=== PATIENT | female | born 1980 | race African-American/Black ===

== ENCOUNTER 2017-04-28 18:11 | Emergency (ER) | payer OTHER ==
[~2017-04-28] VITALS: Ht 165.1 cm; Wt 92.1 kg
--- NOTE | ~2017-04-28 | CR63 ---
[facility] RADIOLOGY TEXT RESULTS PATIENT: MICHELLE ALVAREZ LOCATION: [facility] : 76 UNIT #: [id number] AGE: [address]: Jason Champagne DO SEX: F ORDER DR: [id number] [facility] [address] [place], [place] [address] [id number] E MR#: [id number] Acc #: [id number] NAME: MICHELLE ALVAREZ : 1980 SEX: F STUDY DATE/TIME: 04/28/2017 19:28 UNIT: [facility] ROOM: STUDY DESCRIPTION: CR Chest 2 View Attending Physician: Jason Champagne D.O. Ordering Physician: Jason Champagne D.O. Primary Care Physician: No Primary Care Physician MEDICAL IMAGING REPORT This report is preliminary unless electronic signature is present EXAM AP and lateral chest HISTORY Cough and congestion and shortness of air for 1 month. FINDINGS Cardiac size and pulmonary vascularity are normal allowing for relatively shallow inspiration. Small calcified granuloma in the lateral left upper lobe. No airspace infiltrates or effusions. IMPRESSION No acute findings. Dictated by... Toney Rico M.D. THIS IS AN ELECTRONICALLY VERIFIED REPORT Toney Rico M.D. at 04/29/2017 11:18 PM DFL/df TD: 04/29/2017 07:56 JOB #: [id number] MEDICAL IMAGING REPORT Page 1 of 1 COPY
--- NOTE | ~2017-04-28 | EKG ---
PATIENT: MICHELLE ALVAREZ UNIT #: [id number] Ventricular Rate: 86 BPM Atrial Rate: 86 BPM P-R Interval: 146 ms QRS Duration: 84 ms Q-T Interval: 372 ms QTC Calculation(Bezet): 445 ms P [place]: 55 degrees Calculated R [place]: 57 degrees Calculated T [place]: 28 degrees Diagnosis Line: Normal sinus rhythm Diagnosis Line: Normal ECG Diagnosis Line: When compared with ECG of 01-AUG-2009 20:07, Diagnosis Line: No significant change was found Diagnosis Line: Confirmed by CRISTINO TAVERAS MD ([id number]) on 04/29/2017 Diagnosis Line: 6:24:27 PM INTERPRETING MD: NITIN CHAVEZ
[~2017-04-28 18:11] MED LIST: CIPRO PO
[2017-04-28 19:33] LABS: BASOPHIL# 0.1 X10e3 (0-0.3); BASOPHIL% 1.1 % (0-2.5); EOSINOPHIL# 0.3 X10e3 (0-0.7); EOSINOPHIL% 3.2 % (0.0-7.0); HEMATOCRIT 39.3 % (35.0-45.0); HEMOGLOBIN 12.6 gm/dL (12.0-16.0); LYMPHOCYTE# 2.9 X10e3 (1.0-3.5); LYMPHOCYTE% 32.9 % (17.0-45.0); MEAN CELL VOLUME 74.3 FL (83-96); MEAN CORPUSCULAR HEMOGLOBIN 23.7 PG (28-34); MEAN PLATELET VOLUME 7.8 FL (6.5-11.5); MONOCYTE# 0.5 X10e3 (0-1.0); MONOCYTE% 5.9 % (3.0-12.0); NEUTROPHIL% 56.9 % (40-75); PLATELET COUNT 278 X10e3 (140-420); RED BLOOD COUNT 5.29 X10e (3.90-5.30); WHITE BLOOD COUNT 8.8 X10e3 (4.0-10.5)
[2017-04-28 19:34] LABS: DIFF IND NO
[2017-04-28 19:45] LABS: POC - CKMB <1.0 ng/mL (0.0-7.9); POC - TROPONIN <0.05 ng/mL (<=0.05)
[2017-04-28 19:57] LABS: BUN/CREATININE RATIO 14.28; CALCIUM SERUM 8.8 mg/dL (8.4-10.2); CREATININE SERUM 0.7 mg/dL (0.6-1.4); GLOM FILT RATE Estimated 127.4 mL/min (>60); POTASSIUM 3.8 mmol/L (3.5-5.1)
== END 2017-04-28 20:54 | disposition home or self-care (01) ==
LOC: CED 18:11
PROVIDERS: Emergency Medicine
DX: J20.9 Acute bronchitis, unspecified (principal); I10 Essential (primary) hypertension; J32.9 Chronic sinusitis, unspecified; F17.200 Nicotine dependence, unspecified, uncomplicated; Z98.890 Other specified postprocedural states
CPT/HCPCS: 36415; 71020; 80048; 82553; 83880; 84484; 85025; 85379; 87651; 93005; 99284